=== PATIENT | male | born 1955 | race Caucasian/White ===

== ENCOUNTER 2025-01-26 21:32 | Inpatient (IN) | payer MEDICARE, OTHER, SELFPAY ==
[2025-01-26 14:33] VITALS: BP 134/89
[2025-01-26] MEDS: TYLENOL 1000 MG PO (14:42)
[2025-01-26 15:01] LABS: Hematocrit 43.7 % (39.0-52.0); Hemoglobin 14.7 g/dL (13.0-18.0); Mean Corp Hgb Conc. 33.6 g/dL (33.0-37.0); Mean Corpuscular Volume 85.7 fL (80.0-94.0); Nucleated Red Blood Cells % 0 % (-); Platelet Count 217 10^3/uL (130-400); Red Cell Dist. Width 14.7 % (11.5-14.5)
[2025-01-26 15:08] LABS: Urine Character Cloudy (Clear)
[2025-01-26 15:21] LABS: ALT (SGPT) 15 U/L (0-50); AST (SGOT) 22 U/L (17-59); Albumin 4.2 g/dl (3.5-5.0); Alkaline Phosphatase 69 U/L (38-126); Blood Urea Nitrogen 24 mg/dl (9-20); Calcium 9.4 mg/dl (8.4-10.2); Carbon Dioxide 23 mmol/L (22-30); Chloride 103 mmol/L (98-107); Glucose 119 mg/dl (70-99); Potassium 4.3 mmol/L (3.5-5.1); Sodium 136 mmol/L (135-145); Total Protein 7.4 g/dl (6.3-8.2); eGFR 40.24
[2025-01-26 15:22] LABS: Urine Squamous Cell 0-2 /LPF (Few)
[2025-01-26 15:23] LABS: Urine White Cell >100 /HPF (0-5)
[2025-01-26] MEDS: NSS 1000 IV (17:56)
[2025-01-26 17:57] VITALS: BMI 27.5
[2025-01-26 17:59] VITALS: BP 138/83
[2025-01-26] MEDS: ROCEPHIN 1000 MG IV ×2 (18:20→22:32)
--- NOTE | 2025-01-26 19:51 | ED.GENMED ---
History of Present Illness
General
Chief Complaint: Flank Pain
Source: patient
Exam Limitations: none
Time Seen by Provider: 01/26/25 17:30
Nursing documentation reviewed up to this point in time: agreed with
History of Present Illness
History of Present Illness:
Patient presents to ED secondary to 5-week history of intermittent chills sensation, along with left flank pain and urinary urgency. Patient reports fever over the past 1 week intermittently. Patient has had history of kidney stones. Denies
nausea or vomiting. Denies abdominal pain. Denies loss of appetite. Denies inability to urinate. Patient states that his left flank pain is minimal.
Past History
Past History
ED Past Medical History: None
ED Past Surgical History: None
Social History
Personal:
Living: with family
Employment: Employed
Review of Systems
Review of Systems
Allergies reviewed?: Yes
All Other Systems: ROS reviewed and negative except as documented in HPI and ROS
Constitutional: Reports fever and chills
Respiratory: Reports no symptoms
Cardiac: Reports no symptoms
ABD/GI: Reports no symptoms; Denies abdominal pain, nausea or vomiting
: Reports urgency
Musculoskeletal: Reports no symptoms
Skin: Reports no symptoms
Neurological: Reports no symptoms
Phy Exam
Physical Exam
Physical Exam:
Physical Exam
General: no apparent distress, not acutely ill. febrile
Head: nc/at. eomi
Neck: supple. normal range of motion.
Heart: s1/s2 regular rate and rhythm
Lungs: no acute respiratory distress. clear bilaterally
Abdomen: normal bowel sounds. not tender.
Neuro: alert and oriented x 3. no focal neurological deficits
Skin: no rash
Psychiatric: well kept. interactive and cooperative
Extremities: no edema. no calf tenderness.
Sepsis
Sepsis Screening
Sepsis Assessment: Sepsis
Sepsis Screen
Sepsis Screen: Sepsis
Date: 01/27/25
Time: 00:17
Course
Orders/Labs/Results
Orders:
Orders
01/26/25 Breakfast
NPO
Allow oral meds: Yes
Allow clear liquids: Sips of Clears
01/26/25 14:40
Acetaminophen [Tylenol] 1,000 mg .ROUTE .STK-MED ONE
01/26/25 14:42
Acetaminophen [Tylenol] 1,000 mg PO NOW STA
01/26/25 14:47
Complete Blood Count/With Diff Urgent
Comprehensive Metabolic Panel Urgent
Lactic Acid Urgent
Urinalysis Reflex To Culture Urgent
Date Specimen was Collected: 01/26/25
Time Specimen was Collected: 14:39
Urine Microscopic Reflex Cult Urgent
Urine Culture Urgent
LAWANDA Source: U
Specimen Description:
Date Specimen was Collected: 01/26/25
Time Specimen was Collected: 14:39
01/26/25 14:48
Blood Culture Urgent
LAWANDA Source: Blood/Venous
Specimen Description:
Date Specimen was Collected: 01/26/25
Time Specimen was Collected: 14:39
01/26/25 Dinner
Regular
At Your Request: Full Participation
01/26/25 17:39
CT Abd/pel Without Iv Or Oral Urgent
Comment:
Reason For Exam: left flank pain w hx kidney stone
0.9% Sodium Chloride 1000 ml [Nss] 1,000 ml IV BOLUS
CefTRIAXone [Rocephin] 1,000 mg IV NOW STA
01/26/25 18:14
Blood Culture Urgent
LAWANDA Source: Blood/Venous
Specimen Description:
01/26/25 20:09
Acetaminophen [Tylenol] 650 mg PO NOW STA
01/26/25 20:13
Fentanyl Citrate/Pf [Sublimaze] 25 mcg IV [id number] PRN
HYDROmorphone [Dilaudid] 0.25 mg IV PACU-[id number] PRN
HYDROmorphone [Dilaudid] 0.5 mg IV PACU-Q5MPRN PRN
Ondansetron Injectable [Zofran] 4 mg IV PACU-ONCEPRN PRN
Prochlorperazine [Compazine] 5 mg IV PACU-ONCEPRN PRN
Notify MD As Directed
Notify physician if: for SDS patients with known or suspected sleep obstructive sleep apnea, monitor in the
PACU.
Notify MD for any apneic/desaturation episodes
O2 Therapy [RESP] Urgent
Titrate/Wean O2 to maintain O2 sat greater than (%): 92
Special Instructions: -Provide supplemental oxygen to achieve O2 sat of 92% or greater.
-After 15 min, may wean O2 and discontinue if patient is able to maintain O2 sat of 92%
or greater during recovery period.
If patient is a discharge home, without oxygen therapy, notify anestheiologist if
unable to maintain O2 SAT of 92% or greater on room air for MD clearance.
01/26/25 20:14
Admit/Transfer Patient As Directed
Co-Sign Provider:
Level of Care: Inpatient admission
Assign to:: IMU- Intermediate Care
Physician / Group: Lucas
Diagnosis: UTI, Sepsis, L Ureteral Stone
Reason for Hospitalization: UTI, Sepsis, L Ureteral Stone
Expected length of stay greater than two midnights?: Yes
ELOS- Estimated Length of Stay in days: 3
I certify the patient meets the requirements for IP care: Yes
PRN Pain Medication Management As Directed
May give lesser potent ordered pain med per pt: Yes
preference::
Protocol:: Medication orders for pain may be administered in a
manner that supports deferring to patient preference
when the pt is:
- Requesting an ordered lesser potent pain medication.
Least to most potent pain medications are defined
as: acetaminophen < NSAID < tramadol < opioids
(morphine, oxycodone, hydromorphone).
- Requesting a lesser dose of the same medication IF
ORDERED.
- Requesting a less intrusive route of administration
if both routes are prescribed by the provider (PO <
IV).
01/26/25 20:15
Code Status As Directed
Resuscitation Status: Full Code
0.9% Sodium Chloride 500 ml [Nss] 500 ml IV BOLUS
Normosol (Mult Electrolytes) [Normosol-R/Plasmalyte-A] 1,000 ml IV PER PROTOCOL
01/26/25 20:19
Dexamethasone Sod Phosphate [Decadron] 20 mg .ROUTE .STK-MED ONE
Fentanyl Citrate/Pf [Sublimaze] 100 mcg .ROUTE .STK-MED ONE
Lidocaine 2% Mpf [Xylocaine Mpf 2%] 100 mg .ROUTE .STK-MED ONE
Midazolam HCl [Versed] 2 mg .ROUTE .STK-MED ONE
Ondansetron Injectable [Zofran] 4 mg .ROUTE .STK-MED ONE
Propofol [Diprivan] 20 ml .ROUTE .STK-MED
01/26/25 20:30
CefTRIAXone [Rocephin] 1,000 mg IV NOW STA
01/26/25 20:33
Sterile Water [Sterile Water For Injection] 10 ml IV NOW STA
01/26/25 20:50
Gentamicin Sulfate [Gentamicin] 150 mg 0.9% Sodium Chloride [Nss] 50 ml IV NOW
Phenazopyridine HCl [Pyridium] 200 mg PO TIDPRN PRN
01/26/25 21:05
CR Abdomen - 1 View Urgent
Reason For Exam: CYSTOSCOPY, LEFT STENT PLACEMENT
RF Fluoroscopy, C-arm Urgent
Reason For Exam: CYSTOSCOPY, LEFT STENT PLACEMENT
01/26/25 22:16
Acetaminophen [Tylenol] 650 mg PO Q4HPRN PRN
Atorvastatin [Lipitor] 80 mg PO HS
Gentamicin Sulfate [Gentamicin] 150 mg 0.9% Sodium Chloride [Nss] 50 ml IV NOW
HYDROmorphone [Dilaudid] 0.5 mg IV Q4HPRN PRN
Lactated Ringers [Lr] 1,000 ml IV 150 mls/hr
Ondansetron Injectable [Zofran] 4 mg IV Q6HPRN PRN
Tamsulosin [Flomax] 0.4 mg PO NOW STA
01/26/25 22:16
UROLOGY CONSULT Routine
Consulting Provider: Russell Gamez
Was physician already notified: Yes
Comment: UTI, Sepsis, L Ureteral Stone
Activity As Directed
Activity Level: Ambulate
With Assistance
Bladder Scan As Directed
Follow Bladder Retention/Intermittent Cath Algorithm?: Yes
PRN if no void in __ hours: 6
Frequency: Per Retention Algorithm
If Bladder Scan Result >: 400
then:: Straight cath
EKG with chest pain [ECG as needed] As Directed
ECG as needed for:: Chest Pain
I/O [Intake/ Output] As Directed
Frequency: Per unit guidelines
Pneumatic Compression Sleeves As Directed
Type: Knee high
Straight Cath As Directed
Frequency: Per Retention Algorithm
Additional Instructions: straight cath as needed per acute urinary retention algorithm for 24 hrs
Additional Instructions: for bladder scan greater than 400 mL
Vital Signs As Directed
Frequency: Per unit guidelines
Oxygen Therapy [O2 Therapy] [RESP] Routine
Titrate/Wean O2 to maintain O2 sat greater than (%): 94
DX Deep Vein Thrombosis Video Routine
01/27/25 06:00
Basic Metabolic Panel IN AM
Complete Blood Count/No Diff IN AM
Levothyroxine [Synthroid] 50 mcg PO DAILY @ 0600
01/27/25 08:00
Aspirin Chewable [Low Strength Aspirin] 81 mg PO DAILY
Metoprolol Xl [Toprol Xl] 25 mg PO DAILY
Tamsulosin [Flomax] 0.4 mg PO DAILY
01/27/25 18:00
CefTRIAXone [Rocephin] 1,000 mg IV Q24H
Abnormal Lab Results
01/26/25
14:47
WBC 18.3 H 10^3/uL
(4.8-10.8)
RDW 14.7 H %
(11.5-14.5)
Abs Immat Gran (auto) 0.1 H 10^3/uL
(0-0.05)
Absolute Neuts (auto) 16.5 H 10^3/uL
(1.4-6.5)
Absolute Lymphs (auto) 0.6 L 10^3/uL
(1.2-3.4)
Absolute Monos (auto) 1.0 H 10^3/uL
(0.1-0.6)
Neutrophils % 90.3 H %
(42.2-75.2)
Lymphocytes % 3.2 L %
(20.5-51.1)
BUN 24 H mg/dl
(9-20)
Creatinine 1.8 H mg/dL
(0.7-1.3)
Glucose 119 H mg/dl
(70-99)
Ur Occult Blood Reflex 4+ A
(Negative)
Urine Nitrite (Reflex) Positive A
(Negative)
Leukocyte Esterase Rfl 3+ A
(Negative)
Urine RBC 3-6 A /HPF
(0-2)
Urine WBC (Reflex) >100 A /HPF
(0-5)
Urine Bacteria (Reflex) Many A
(Negative)
Urine Albumin (Reflex) 3+ A
(Neg - Trace)
01/26/25 14:47
01/26/25 14:47
Vital Signs
Initial and Last Documented VS:
Initial Vital Signs
Temp Pulse Resp BP Pulse Ox
102.5 F H 108 20 134/89 95
01/26/25 14:33 01/26/25 14:33 01/26/25 14:33 01/26/25 14:33 01/26/25 14:33
Last Documented Vital Signs
Temp Pulse Resp BP Pulse Ox
98.5 F 81 19 97/56 95
01/26/25 22:54 01/27/25 00:00 01/27/25 00:00 01/27/25 00:00 01/27/25 00:00
MDM/Problems Addressed
MDM/Problems Addressed:
History, exam, and CT scan concerning for sepsis, likely secondary to UTI, due to obstructing renal stone.
Discussed with on-call urology, Dr. Gamez, who will take patient to the OR this evening.
Patient will be admitted for further evaluation and treatment.
Blood culture pending. Rocephin given.
*Pulse Oximetry
SaO2: 98
Oxygen Mode of Delivery: Room air
Patient hypoxic: no
*Critical Care Note
Total Time (30-74mins, 75-104mins- exclusive of procedures): Not Applicable
ED Attending Note
-
Portions of this chart may have been created with voice recognition software.� Occasional wrong word or��sound alike� substitutions may have occurred due to the inherent limitations of voice recognition software.
Discharge Plan
Departure
Patient Disposition: OR
Admit to: IMU
Presentation/result/management discussed w/ accepting MD/DO: Hospitalist
Discharge Problem:
Sepsis, Acute UTI, Kidney stone, Renal failure (ARF), acute on chronic
Interventions
Interventions:
*General Assessment Last Done: 01/26/25 17:58
*Neglect/Abuse Screening Last Done: 01/26/25 18:37
*ED COVID-19 Vaccine History Last Done: 01/26/25 17:58
*ED Influenza Vaccine History Last Done: 01/26/25 17:58
[facility] Risk Assessment Tool Last Done: 01/26/25 18:37
*Risk Screen - Suicide (C-SSRS) Last Done: 01/26/25 18:37
*Nursing Disposition Last Done: 01/26/25 20:26
TL-Pslwls-Izuohoyqse Assessment Last Done: 01/26/25 18:00
ED-Male Genitourinary Assessment Last Done: 01/26/25 18:00
Discharge Date and Time
Discharge Date/Time: 01/26/25 20:26
[2025-01-26] MEDS: TYLENOL 650 MG PO (20:19)
--- NOTE | 2025-01-26 20:25 | HPS.HSE ---
Family Physician
-
Family Physician: Allen Hurtado Files
Chief Complaint
-
Chills
History of Present Illness
Patient is a 69y M with PMH significant for ASCVD and hypothyroidism who presents to ED complaining of shaking chills. Patient states he initially developed chills in mid December while away in the [facility]. He noted decreased urinary stream,
dark colored urine and mild L flank pain. [place] returned to [place] and his chills, etc seemed to resolve. He continued to have issues with urination however - namely, frequency with small volume / dark colored urination. He noted pain radiating to the
tip of the penis with urination. He spoke with his Urologist and had an appointment for the end of this week. However, he developed recurrent chills 2-3 days ago. He notes some pain in the L flank / L hip area.
He presented to the ED this evening for further evaluation.
Medical History
Past Medical History
Past Medical History: Reports Other
Additional Past Medical History:
ASCVD
Hypothyroidism
Nephrolithiasis
CKD III
Past Surgical History: Reports Other
Additional Past Surgical History:
CABG x 3
Cysto / Stents
Social History
Tobacco: Non-smoker
Alcohol: None
Drug: None
Family History
Family History: Not pertinent
Allergies / Home Medications
Allergies reflects when Allergies were last updated in [employer].
Home Medications with original date entered in [employer]
Allergy/Medication List:
Allergies
Allergy/AdvReac Type Severity Reaction Status Date / Time
No Known Allergies Allergy Verified 01/26/25 14:32
Home Medications
aspirin 81 mg chewable tablet 81 mg PO DAILY 01/26/25
atorvastatin 80 mg tablet 80 mg PO HS 01/26/25
ezetimibe 10 mg tablet 10 mg PO DAILY 01/26/25
levothyroxine 50 mcg tablet 50 mcg PO DAILY 01/26/25
metoprolol succinate 25 mg tablet,extended release 24 hr 25 mg PO DAILY 01/26/25
Review of Systems
-
History Source: Patient
A 12 point ROS was completed and negative except as noted: Yes
Constitutional: Reports Fever, Fatigue and Chills
EENT: Denies Sore Throat
Respiratory: Denies Cough or Trouble Breathing
Cardiac: Denies Chest Pain or Palpitations
Abdomen/GI: Reports Abdominal Pain; Denies Nausea, Vomiting or Diarrhea
: Reports Dysuria, Frequency, Flank Pain, Difficulty Voiding and Dark Urine
Musculoskeletal: Denies Joint Pain or Edema
Neurological: Denies Dizzy or Headache
Psych: Denies Depression or Anxiety
Physical Exam
Vital Signs
Vital Signs
Temp Pulse Resp BP Pulse Ox
101.3 F H 62 20 138/83 98
01/26/25 20:07 01/26/25 17:59 01/26/25 17:59 01/26/25 17:59 01/26/25 19:54
Physical Exam
General: Other (69y M with active rigors. Awake and alert and able to answer questions / follow commands.)
HEENT: Moist mucous membranes and PERRLA
Respiratory: Clear; No Wheezes, Rales or Rhonchi
Cardiac: S1/S2 and Tachycardia; No Murmur
GI: Soft, Non Distended, Normal Bowel Sounds and Other (Mild LLQ tenderness.)
Musculoskeletal: No Clubbing, No Cyanosis and No Edema
Neuro: AO x 3
Laboratory Results
-
01/26/25 14:47
01/26/25 14:47
Laboratory Results
Lactic Acid 1.3 mmol/L (0.7-2.0) 01/26/25 14:47
Total Bilirubin 1.1 mg/dl (0.2-1.3) 01/26/25 14:47
AST 22 U/L (17-59) 01/26/25 14:47
ALT 15 U/L (0-50) 01/26/25 14:47
Alkaline Phosphatase 69 U/L (38-126) 01/26/25 14:47
Impression/Plan
-
A/P: Patient is a 69y M with PMH significant for ASCVD and hypothyroidism who presents to ED complaining of shaking chills, urinary symptoms and L flank pain.
Left Ureterolithiasis with Hydronephrosis
UTI secondary to the above
Sepsis secondary to the above
HUGH on CKD III
- Admit for further evaluation and treatment.
- Patient to be taken urgently to the OR for cysto / stent.
- Admit to IMU post-op.
- Continue IV abx pending culture data.
- Supportive care including aggressive IVFs, pain control, antipyretics, etc +/- pressor support if needed to maintain perfusion.
- Tamsulosin daily.
- Appreciate Urology evaluation / intervention.
- SCr = 1.8 compared to prior baseline of 1.5. Likely secondary to obstruction, sepsis, etc.
- Follow for improvement s/p cysto, IVFs, etc.
ASCVD
- Stable. No chest pain, palpitations, etc.
- Monitor on telemetry post-op.
- Continue ASA, beta-amelia, statin.
- Follow for any new symptoms / complaints.
Hypothyroidism
- Continue current T4 replacement.
DVT Prophylaxis: SCDs
Code Status: Full
--- NOTE | 2025-01-26 20:45 | CONS.URO ---
Consultation
-
Date/Time Consultation Requested: 01/26/20252004
Date/Time Consultation Performed: 01/26/20252029
Requesting Provider: ED/No
Performing Provider: Franco
Reason for Consultation: left ureteral stone + sepsis
Medical History
History of Present Illness
ED note: Patient presents to ED secondary to 5-week history of intermittent chills sensation, along with left flank pain and urinary urgency. Patient reports fever over the past 1 week intermittently. Patient has had history of kidney stones.
Denies nausea or vomiting. Denies abdominal pain. Denies loss of appetite. Denies inability to urinate. Patient states that his left flank pain is minimal.'
Past Medical History
Past Medical History: CAD, HTN, Hypercholesterolemia and Hypothyroidism
Past Surgical History: Cardiac and Urological (2011 Left Ureteroscopy)
Allergies/Home Medications
Allergies
Allergy/AdvReac Type Severity Reaction Status Date / Time
No Known Allergies Allergy Verified 01/26/25 14:32
Home Medications
�Medication �Instructions �Recorded �Confirmed �Type
aspirin 81 mg chewable tablet 81 mg PO DAILY 01/26/25 01/26/25 History
atorvastatin 80 mg tablet 80 mg PO HS 01/26/25 01/26/25 History
ezetimibe 10 mg tablet 10 mg PO DAILY 01/26/25 01/26/25 History
levothyroxine 50 mcg tablet 50 mcg PO DAILY 01/26/25 01/26/25 History
metoprolol succinate 25 mg 25 mg PO DAILY 01/26/25 01/26/25 History
tablet,extended release 24 hr
Physical Exam
Vital Signs
Vital Signs
Temp Pulse Resp BP Pulse Ox
101.3 F H 62 20 138/83 98
01/26/25 20:07 01/26/25 17:59 01/26/25 17:59 01/26/25 17:59 01/26/25 19:54
Lab / Testing Results
Laboratory Results
01/26/25 14:47
01/26/25 14:47
Physical Exam
General: No Apparent Distress
HEENT: Normocephalic
GI: Soft and Non Tender
Genito-urinary: No Costovertebral Tend
Skin: Warm
Neuro: Awake and Alert
Assessment / Plan
-
Left Ureteral Stone: 4 mm, lower, obstructing
UTI with evolving sepsis
emergently to OR for left ureteral stenting
Data Reviewed
-
CT Scan: Image personally visualized and interpreted
Lab Data: Labs Reviewed
Old Records: Reviewed
--- NOTE | 2025-01-26 20:49 | W.SUR.PREOP ---
Pre-Operative Surgical Note
-
I have examined this patient prior to the performance of the scheduled procedure.
Surgical consent signed.
--- NOTE | 2025-01-26 21:14 | W.IMMPOSTOP ---
Surgical Immed Post Op Note
-
Primary Surgeon: Franco
Pre-op Diagnosis: Left ureteral Stone, evolving Sepsis
Post-op Diagnosis: same
Procedure Performed: Cysto, dislodgement of left ureteral stone, stenting
Anesthesia Type: LMA
Specimen / Cultures: none
Estimated Blood Loss: none
Complications: none
Operative Findings: debris-laden urine in bladder; purulent urine via left ureter upon placement of stent [6 fr 24 cm]
[2025-01-26 21:24] VITALS: BP 138/83; BP 72/52
[2025-01-26 21:45] VITALS: BP 101/58
[2025-01-26 22:00] VITALS: BP 97/58
[2025-01-26 22:22] VITALS: BP 125/72
[2025-01-26 22:28] VITALS: BMI 28.2
[2025-01-26] MEDS: FLOMAX 0.4 MG PO (22:32)
[2025-01-26] MEDS: LIPITOR 80 MG PO (22:32)
[2025-01-26] MEDS: STERILE WATER FOR INJECTION 10 ML IV (22:32)
[2025-01-26] MEDS: LR 1000 IV (22:44)
--- NOTE | 2025-01-26 23:07 | PTCARENOTE ---
rec'd pt from PACU. IMU overflow. CHG bath done. oriented x3, SR on monitor, denies pain. afebrile. on RA, O2 sat 96%. CC placed #30. IVF initiated. call tolliver in reach. updated at bedside. care ongoing.
[2025-01-27] VITALS (15 sets, daily range): BP systolic 91–120; BP diastolic 56–71
[2025-01-27] MEDS: LR 1000 IV ×3 (03:52→18:22)
[2025-01-27 04:40] LABS: Blood Urea Nitrogen 25 mg/dl (9-20); Calcium 8.7 mg/dl (8.4-10.2); Carbon Dioxide 24 mmol/L (22-30); Chloride 107 mmol/L (98-107); Estimated Creatinine Clearance 42 ml/min; Glucose 129 mg/dl (70-99); Potassium 4.7 mmol/L (3.5-5.1); Sodium 136 mmol/L (135-145); eGFR 50.08
[2025-01-27 04:42] LABS: Hematocrit 39.5 % (39.0-52.0); Hemoglobin 13.4 g/dL (13.0-18.0); Mean Corp Hgb Conc. 33.9 g/dL (33.0-37.0); Mean Corpuscular Volume 84.4 fL (80.0-94.0); Platelet Count 169 10^3/uL (130-400); Red Cell Dist. Width 14.8 % (11.5-14.5)
[2025-01-27] MEDS: SYNTHROID 50 MCG PO (06:21)
--- NOTE | 2025-01-27 07:39 | W.PN.URO.CBU ---
Today's Communication / Plan
-
tx infection-- Ceftriaxone + Gent until micro results permit tailoring
After infection has been cleared and patient has fully recovered, a return to OR to remove stone will be scheduled.
Assessment / Plan
-
Left ureteral Stone, evolving Urosepsis
s/p emergency Cysto, dislodgement of left ureteral stone, stenting
Diagnosis
-
Date of Service: January 27, 2025
-
Patient Diagnosis:
Pre-op Diagnosis: Left ureteral Stone, evolving Sepsis
s/p: Cysto, dislodgement of left ureteral stone, stenting
Post Op Day: 1
Objective
-
Vital Signs
Temp Pulse Resp BP Pulse Ox
97.7 F 61 15 91/65 93
01/27/25 07:30 01/27/25 06:00 01/27/25 06:00 01/27/25 06:00 01/27/25 06:00
Intake and Output
01/26/25 01/27/25 01/28/25
06:59 06:59 06:59
Intake Total 1380 / 1380
Output Total 400 / 400
Balance 980 / 980
Intake:
Oral fluids 480 / 480
IV fluids (Total) 900 / 900
Lr 1,000 ml @ 150 mls/hr IV . 900 / 900
Q6H40M [facility] Rx#:[id number]
Output:
Urine, Voided 400 / 400
Laboratory Results
01/27/25 03:52
01/27/25 03:52
+ blood cx
Physical Exam
-
General - well developed, well nourished, no acute distress
Chest - clear bilaterally
Abdomen - soft, non-tender, positive bowel sounds, no CVAT, no incisional pain or distention
Genitalia - normal
Rectal - normal
Skin - warm & dry with no rash
Neuro - AOx3, no motor deficits
Extremities - no clubbing, no cyanosis, no edema
Incision - clean, dry
Dressing - clean, dry, intact
[2025-01-27] MEDS: LOW STRENGTH ASPIRIN 81 MG PO (08:46)
[2025-01-27] MEDS: FLOMAX 0.4 MG PO (08:46)
[2025-01-27] MEDS: TOPROL XL PO (08:47)
--- NOTE | 2025-01-27 09:36 | CON.ID ---
Consultation
-
Date/Time Consultation Requested: 01/27/25 9:10
Date/Time Consultation Performed: 01/27/25 9:36
Requesting Provider: Dr Cortes
Performing Provider: Dr Hewitt
Reason for Consultation: UTI
Chief Complaint / Past History
Chief Complaint
rigors
History of Present Illness
Mr Hopson is a 69 year old male with pmedhx of renal stones (calcium oxalate and uric acid 2010) ASCVD who presented here yesterday for rigors. He reports chills first began in mid-december about 4 weeks ago while [facility]. He also
had mild L flank pain, decreased urinary stream and dark urine. The chills resolved but he continued with urinary frequency and terminal dysuria. Then 2-3 days ago the chills relapsed along with pain in the L flank and he presented here
Since arrival here he has been febrile to 102.5, bp intermittently mildly hypotensive, wbc initially 18.3, hgb 14.7, plt 217, L shift present, na 136, cr 1.8 baseline appears to be 1.5 and today has returned to baseline, lactic acid1.3, lfts wnl, UA
>100 WBC/hpf, 01/26 CT a/p without contrast: 4 mm obstructing stone distal L ureter with L sided hydroureteronephrosis, asymmetric stranding along l ureter and kidney, urine culture is pending, blood culture with E coli, patient on ceftriaxone,
01/26 taken for cysto, dislodgement of L ureteral stone (not able to be removed), stenting, had purulent urine on stent placement, was given gentamicin 150 mg of gentamicin, ID is consulted for assistance with management.
Past History
Additional Past Medical History:
ASCVD
Hypothyroidism
Nephrolithiasis
CKD III
Additional Past Surgical History:
CABG x 3
Cysto / Stents
Allergy History:
No Known Allergies Allergy (Verified 01/26/25 14:32)
Medications Reviewed: Yes
Social History
Tobacco: Non-Smoker
Alcohol: None
Drug: None
Family History
Family History: Not Pertinent
Review of Systems
Review of Systems
Constitutional: Reports Fever, Fatigue and Chills
EENT: Denies Sore Throat
Respiratory: Denies Cough or Trouble Breathing
Cardiac: Denies Chest Pain or Palpitations
Abdomen/GI: Reports Abdominal Pain; Denies Nausea, Vomiting or Diarrhea
: Reports Dysuria, Frequency, Flank Pain, Difficulty Voiding and Dark Urine
Musculoskeletal: Denies Joint Pain or Edema
Neurological: Denies Dizzy or Headache
Psych: Denies Depression or Anxiety
Vital Signs
Temp Pulse Resp BP Pulse Ox
97.7 F 61 15 91/65 93
01/27/25 07:30 01/27/25 06:00 01/27/25 06:00 01/27/25 06:00 01/27/25 06:00
Physical Exam
Physical Exam
Constitutional: No Acute Distress
Cardiovascular: Regular Rate and S1/S2; Negative Murmur or Rub
Pulmonary: Clear and Symmetric; Negative Wheezes, Rales or Rhonchi
Gastrointestinal: Soft, Non Tender, Non Distended and Normal Bowel Sounds
Genito-Urinary: Negative Suprapubic Tenderness or CVA Tenderness
Skin: Warm and Dry; Negative Rash or Jaundice
Lab / Diagnostic Study Results
01/27/25 03:52
01/27/25 03:52
Abs Immat Gran (auto) 0.1 10^3/uL (0-0.05) H 01/26/25 14:47
Absolute Neuts (auto) 16.5 10^3/uL (1.4-6.5) H 01/26/25 14:47
Absolute Lymphs (auto) 0.6 10^3/uL (1.2-3.4) L 01/26/25 14:47
Absolute Monos (auto) 1.0 10^3/uL (0.1-0.6) H 01/26/25 14:47
Absolute Basos (auto) 0.1 10^3/uL (0-0.2) 01/26/25 14:47
Immature Gran % 0.4 % (0-0.5) 01/26/25 14:47
Neutrophils % 90.3 % (42.2-75.2) H 01/26/25 14:47
Lymphocytes % 3.2 % (20.5-51.1) L 01/26/25 14:47
Monocytes % 5.7 % (1.7-9.3) 01/26/25 14:47
Eosinophils % 0.1 % (0-6) 01/26/25 14:47
Basophils % 0.3 % (0-2) 01/26/25 14:47
Lactic Acid 1.3 mmol/L (0.7-2.0) 01/26/25 14:47
Ur Squamous Epith Cells 0-2 /LPF (Few) 01/26/25 14:47
Microbiology Results
Micro:
01/26/25 14:48 Blood Culture - Preliminary
Blood/Venous Escherichia coli
Gram Stain - Preliminary
01/26/25 18:14 Blood Culture - Preliminary
Blood/Venous Positive culture in progress
Gram Stain - Preliminary
01/26/25 14:47 Urine Culture - Pending
Urine
Assessment / Plan
Pyelonephritis due to E coli
Bacteremia due to E coli
Suspected prostatitis
Possible CKD
- urine culture obtained prior to removal of obstruction and may be falsely negative
- blood cultures with E coli with likely urinary source
- no need to repeat blood cultures for gram negative bacteremia with a source from ID perspective
- as patient is HD stable the risks of aminoglycosides (nephro/ototoxicity in the setting of likely CKD) outweigh the benefits (more rapid clearance of bacteremia) at this time in my opinion
- continue ceftriaxone for present
- check EKG to get baseline QTc
[2025-01-27] MEDS: FLUSH (NSS) 1 FLUSH IV ×2 (09:44→09:50)
[2025-01-27] MEDS: STERILE WATER FOR INJECTION 20 ML IV (09:44)
[2025-01-27] MEDS: ROCEPHIN 2000 MG IV (09:45)
--- NOTE | 2025-01-27 10:23 | PTCARENOTE ---
report received, assessments per work list. patient oriented, denies pain. monitor nsr, good appetite for breakfast. abdomen soft, condom cath removed. using urinal. oob to chair. ID at bedside. blood cultures sent. call tolliver in reach
[2025-01-27] MEDS: CLARITIN 10 MG PO (12:48)
--- NOTE | 2025-01-27 14:07 | W.PN.HOSP.TC ---
Today's Communication/Plan
-
Monitor vital signs see plan
Continue with fluids
Monitor renal function
Check new sets of blood culture
Follow blood culture for admission, growing gram-negative rods
Continue with ceftriaxone
Neurology following
ID evaluation
Transfer out of IMU
Assessment / Plan
Assessment / Plan
General: Other (69y M with active rigors. Awake and alert and able to answer questions / follow commands.)
HEENT: Moist mucous membranes and PERRLA
Respiratory: Clear; No Wheezes, Rales or Rhonchi
Cardiac: S1/S2 and Tachycardia; No Murmur
GI: Soft, Non Distended, Normal Bowel Sounds
Musculoskeletal: No Clubbing, No Cyanosis and No Edema
Neuro: AO x 3
Left Ureterolithiasis with Hydronephrosis
UTI secondary to the above
Sepsis secondary to UTI with bacteremia
HUGH on CKD III
- Patient was taken urgently to the OR for cysto / stent. s/p cysto/stent
- Continue IV abx pending culture data. Blood culture 2 out of 2 bottles positive for gram-negative bacilli. ID evaluation. Check new sets of blood culture
Continue with IVF
- Tamsulosin daily.
Urology following
- SCr = 1.8 compared to prior baseline of 1.5. Likely secondary to obstruction, sepsis, etc.
ASCVD
- Stable. No chest pain, palpitations, etc.
- Monitor on telemetry post-op.
- Continue ASA, beta-amelia, statin.
- Follow for any new symptoms / complaints.
hx of HTN
monitor
Hypothyroidism
- Continue current T4 replacement.
DVT Prophylaxis: SCDs, heparin
Code Status: Full
I spent a total of 53 minutes with the patient or on the floor. More than 50% of this time involved counseling and coordination of care.
Anticipated Discharge: > 48 hours
Subjective/Interval History
-
Date of Service: January 27, 2025
Denies nausea
Objective Data
-
Labs:
Laboratory Results
01/27/25
03:52
WBC 17.3 H
Hgb 13.4
Hct 39.5
Plt Count 169 D
Sodium 136
Potassium 4.7
Chloride 107
Carbon Dioxide 24
BUN 25 H
Creatinine 1.5 H
Glucose 129 H
Calcium 8.7
Vital Signs:
Vital Signs
Temp Pulse Resp BP Pulse Ox
98.7 F 79 19 106/62 93
01/27/25 11:12 01/27/25 11:00 01/27/25 11:00 01/27/25 10:00 01/27/25 11:00
I&O
01/26/25 01/27/25 01/28/25
06:59 06:59 06:59
Intake Total 1380 / 1380 1350 / 1350
Output Total 400 / 400 450 / 450
Balance 980 / 980 900 / 900
--- NOTE | 2025-01-27 14:42 | CM ---
Initial assessment completed. Patient is a 69y M with PMH significant for ASCVD and hypothyroidism who presents to ED complaining of shaking chills.
Patient resides w/ spouse in a 2STH, 1 step to enter. Per spouse, she and patient reside on the 1st floor most of the time as there is a bedroom and bathroom there. Patient is independent w/ ambulation, no device required. Independent w/ ADLs and
personal care. No DME, no SNF hx, no HC hx.
Address, point of contact and insurance verified
PCP: Bryant Boone
Pharmacy: [facility]
Plan: Home, watch for needs
[2025-01-27] MEDS: HEPARIN 5000 UNITS SC (20:19)
[2025-01-27] MEDS: LIPITOR 80 MG PO (20:19)
[2025-01-28] MEDS: LR 1000 IV ×3 (01:16→14:27)
[2025-01-28 03:00] VITALS: BP 99/63
[2025-01-28] MEDS: SYNTHROID 50 MCG PO (05:06)
[2025-01-28 05:54] LABS: Hematocrit 34.7 % (39.0-52.0); Hemoglobin 11.9 g/dL (13.0-18.0); Mean Corp Hgb Conc. 34.3 g/dL (33.0-37.0); Mean Corpuscular Volume 84.8 fL (80.0-94.0); Nucleated Red Blood Cells % 0 % (-); Platelet Count 189 10^3/uL (130-400); Red Cell Dist. Width 14.7 % (11.5-14.5)
[2025-01-28 06:20] LABS: Blood Urea Nitrogen 27 mg/dl (9-20); Calcium 8.5 mg/dl (8.4-10.2); Carbon Dioxide 23 mmol/L (22-30); Chloride 107 mmol/L (98-107); Estimated Creatinine Clearance 52 ml/min; Glucose 107 mg/dl (70-99); Potassium 4.3 mmol/L (3.5-5.1); Sodium 135 mmol/L (135-145); eGFR > 60.00
[2025-01-28 07:29] VITALS: BP 125/78
[2025-01-28] MEDS: CLARITIN 10 MG PO (07:44)
[2025-01-28] MEDS: TOPROL XL 25 MG PO (07:44)
[2025-01-28] MEDS: LOW STRENGTH ASPIRIN 81 MG PO (07:44)
[2025-01-28] MEDS: FLOMAX 0.4 MG PO (07:44)
[2025-01-28] MEDS: HEPARIN 5000 UNITS SC ×2 (07:49→20:47)
[2025-01-28] MEDS: FLUSH (NSS) IV (08:11)
--- NOTE | 2025-01-28 08:40 | W.PN.URO.CBU ---
Today's Communication / Plan
-
abx per medical team
will return to OR for removal of stone after infection has cleared
Assessment / Plan
-
Left ureteral Stone, E. coli Sepsis
s/p: Cysto, dislodgement of left ureteral stone, stenting
Diagnosis
-
Date of Service: January 28, 2025
-
Diagnoses: Left ureteral Stone, E. coli Sepsis
s/p: Cysto, dislodgement of left ureteral stone, stenting
Post Op Day: 2
Objective
-
Vital Signs
Temp Pulse Resp BP Pulse Ox
97.9 F 61 17 125/78 97
01/28/25 07:29 01/28/25 07:29 01/28/25 07:29 01/28/25 07:29 01/28/25 07:29
Intake and Output
01/27/25 01/28/25 01/29/25
06:59 06:59 06:59
Intake Total 1380 / 1380 4870 / 4870
Output Total 400 / 400 1150 / 1150
Balance 980 / 980 3720 / 3720
Intake:
Oral fluids 480 / 480 2770 / 2770
IV fluids (Total) 900 / 900 2099 / 2100
Lr 1,000 ml @ 150 mls/hr IV . 900 / 900 2099
[id number] [facility] Rx#:[id number]
Output:
Urine, Voided 400 / 400 1150 / 1150
Laboratory Results
01/28/25 05:07
01/28/25 05:07
E. coli in urine and blood
Physical Exam
-
General - well developed, well nourished, no acute distress
Chest - clear bilaterally
Abdomen - soft, non-tender, positive bowel sounds, no CVAT, no incisional pain or distention
Genitalia - normal
Rectal - normal
Skin - warm & dry with no rash
Neuro - AOx3, no motor deficits
Extremities - no clubbing, no cyanosis, no edema
Incision - clean, dry
Dressing - clean, dry, intact
[2025-01-28] MEDS: STERILE WATER FOR INJECTION 20 ML IV (10:10)
[2025-01-28] MEDS: ROCEPHIN 2000 MG IV (10:10)
[2025-01-28] MEDS: FLUSH (NSS) 1 FLUSH IV (10:11)
[2025-01-28 11:06] VITALS: BP 106/58
--- NOTE | 2025-01-28 11:56 | W.PN.HOSP.TC ---
Today's Communication/Plan
-
Monitor vital signs see plan
Monitor leukocytosis
Follow cultures
Continue with antibiotic
Assessment / Plan
Assessment / Plan
General: No acute distress
HEENT: Moist mucous membranes and PERRLA
Respiratory: Clear; No Wheezes, Rales or Rhonchi
Cardiac: S1/S2 and Tachycardia; No Murmur
GI: Soft, Non Distended, Normal Bowel Sounds
Musculoskeletal: No Clubbing, No Cyanosis and No Edema
Neuro: AO x 3
Left Ureterolithiasis with Hydronephrosis
UTI secondary to the above
Sepsis secondary to UTI with bacteremia
HUGH on CKD III
- Patient was taken urgently to the OR for cysto / stent. s/p cysto/stent
- Continue IV abx pending culture data. Blood culture 2 out of 2 bottles positive for E. coli. ID following. bcx 01/27 pending. cw CFTX
- Tamsulosin daily.
Urology following
Renal insufficiency
Improving
Likely secondary to obstruction
ASCVD
- Stable. No chest pain, palpitations, etc.
- Monitor on telemetry post-op.
- Continue ASA, beta-amelia, statin.
- Follow for any new symptoms / complaints.
hx of HTN
monitor
Hypothyroidism
- Continue current T4 replacement.
DVT Prophylaxis: SCDs, heparin
Code Status: Full
I spent a total of 51 minutes with the patient or on the floor. More than 50% of this time involved counseling and coordination of care.
Anticipated Discharge: 24 - 48 hours
Subjective/Interval History
-
Date of Service: January 28, 2025
Denies pain
Objective Data
-
Labs:
Laboratory Results
01/28/25
05:07
WBC 19.2 H
Hgb 11.9 L
Hct 34.7 L
Plt Count 189
Sodium 135
Potassium 4.3
Chloride 107
Carbon Dioxide 23
BUN 27 H
Creatinine 1.2
Glucose 107 H
Calcium 8.5
Vital Signs:
Vital Signs
Temp Pulse Resp BP Pulse Ox
97.9 F 91 17 106/58 95
01/28/25 11:06 01/28/25 11:06 01/28/25 11:06 01/28/25 11:06 01/28/25 11:06
I&O
01/27/25 01/28/25 01/29/25
06:59 06:59 06:59
Intake Total 1380 / 1380 4870 / 4870
Output Total 400 / 400 1150 / 1150
Balance 980 / 980 3720 / 3720
[2025-01-28 15:11] VITALS: BP 135/73
--- NOTE | 2025-01-28 16:35 | W.PN.ID1 ---
Date of Service
Date of Service: January 28, 2025
Today's Communication
- start ciprofloxacin 500 mg PO BID x 14 day course 01/27-02/09
- QTc 420
- stable for dc from ID perspective, follow up with urology
Assessment / Plan
Pyelonephritis due to E coli
Bacteremia due to E coli
Suspected prostatitis
Possible CKD
- urine culture E coli
- blood cultures with E coli
- start ciprofloxacin 500 mg PO BID x 14 day course 01/27-02/09
- QTc 420
- stable for dc from ID perspective, follow up with urology
Chief Complaint
-: UTI
Subjective / Review of Systems
afebrile
bp stable
less dysuria
asking about dc
Vital Signs / Physical Exam
Vital Signs
Vital Signs
Temp Pulse Resp BP Pulse Ox
98.3 F 79 17 135/73 97
01/28/25 15:11 01/28/25 15:11 01/28/25 15:11 01/28/25 15:11 01/28/25 15:11
Physical Exam
Constitutional: No Acute Distress
Cardiovascular: Regular Rate and S1/S2; Negative Murmur or Rub
Pulmonary: Clear and Symmetric; Negative Wheezes or Rales
Gastrointestinal: Soft, Non Tender, Non Distended and Normal Bowel Sounds
Genito-Urinary: Negative Suprapubic Tenderness or CVA Tenderness
Skin: Warm and Dry; Negative Rash or Jaundice
Objective Data
Lab Data
Lab Results
01/28/25 05:07
01/28/25 05:07
Estimated Creat Clear 52 ml/min 01/28/25 05:07
Lactic Acid 1.3 mmol/L (0.7-2.0) 01/26/25 14:47
Total Bilirubin 1.1 mg/dl (0.2-1.3) 01/26/25 14:47
AST 22 U/L (17-59) 01/26/25 14:47
ALT 15 U/L (0-50) 01/26/25 14:47
Alkaline Phosphatase 69 U/L (38-126) 01/26/25 14:47
Most recent labs reviewed.
Micro Results:
01/27/25 10:07 Blood Culture - Preliminary
Blood/Venous No Growth in 24 hours- Final report to follow
01/27/25 09:40 Blood Culture - Preliminary
Blood/Venous No Growth in 24 hours- Final report to follow
01/26/25 18:14 Blood Culture - Preliminary
Blood/Venous Escherichia coli
Gram Stain - Preliminary
01/26/25 14:48 Blood Culture - Preliminary
Blood/Venous Escherichia coli
Gram Stain - Preliminary
01/26/25 14:47 Urine Culture - Final
Urine Escherichia coli
Urine Culture Final 01/28/25-0808
CC: Greater than 100,000 CFU/ML Escherichia coli
Organism 1 Escherichia coli
1. Escherichia coli
M.I.C. RX
--------- ---
Amoxicillin/Potas. Clavulanate <=8/4 S
Ampicillin <=8 S
Ampicillin/Sulbactam <=4/2 S
Aztreonam <=4 S
Cefazolin <=2 S
Ertapenem <=0.5 S
Ciprofloxacin <=0.25 S
Gentamicin <=2 S
Meropenem <=1 S
Nitrofurantoin-Urine Only <=32 S
Piperacillin/Tazobactam <=8 S
Tetracycline <=4 S
Tobramycin <=2 S
Trimethoprim/Sulfamethoxazole <=2/38 S
[2025-01-28 19:43] VITALS: BP 141/77
[2025-01-28] MEDS: LR IV (22:24)
[2025-01-28 22:55] VITALS: BP 122/74
[2025-01-29 02:55] VITALS: BP 121/71
[2025-01-29] MEDS: SYNTHROID 50 MCG PO (05:00)
[2025-01-29 05:59] LABS: Hematocrit 35.0 % (39.0-52.0); Hemoglobin 12.0 g/dL (13.0-18.0); Mean Corp Hgb Conc. 34.3 g/dL (33.0-37.0); Mean Corpuscular Volume 83.9 fL (80.0-94.0); Nucleated Red Blood Cells % 0 % (-); Platelet Count 189 10^3/uL (130-400); Red Cell Dist. Width 14.7 % (11.5-14.5)
[2025-01-29 06:05] LABS: Blood Urea Nitrogen 22 mg/dl (9-20); Calcium 8.5 mg/dl (8.4-10.2); Carbon Dioxide 25 mmol/L (22-30); Chloride 104 mmol/L (98-107); Estimated Creatinine Clearance 48 ml/min; Glucose 83 mg/dl (70-99); Potassium 4.0 mmol/L (3.5-5.1); Sodium 135 mmol/L (135-145); eGFR 59.47
[2025-01-29 07:33] VITALS: BP 108/64
[2025-01-29] MEDS: TOPROL XL 25 MG PO (08:14)
[2025-01-29] MEDS: FLOMAX 0.4 MG PO (08:14)
[2025-01-29] MEDS: CLARITIN 10 MG PO (08:14)
[2025-01-29] MEDS: CIPRO 500 MG PO (08:14)
[2025-01-29] MEDS: LOW STRENGTH ASPIRIN 81 MG PO (08:14)
[2025-01-29] MEDS: HEPARIN 5000 UNITS SC (08:14)
[2025-01-29] MEDS: FLUSH (NSS) IV ×2 (08:15→08:18)
--- NOTE | 2025-01-29 10:39 | W.PN.ID1 ---
Date of Service
Date of Service: January 29, 2025
Today's Communication
- c/w ciprofloxacin 500 mg PO BID x 14 day course 01/27-02/09
- QTc 420
- stable for dc from ID perspective, follow up with urology
Assessment / Plan
Pyelonephritis due to E coli
Bacteremia due to E coli
Suspected prostatitis
Possible CKD
- urine culture E coli
- blood cultures with E coli
- c/w ciprofloxacin 500 mg PO BID x 14 day course 01/27-02/09
- QTc 420
- stable for dc from ID perspective, follow up with urology
Chief Complaint
-: UTI
Subjective / Review of Systems
afebrile
bp stable
tolerating current therapies
no events overnight
Vital Signs / Physical Exam
Vital Signs
Vital Signs
Temp Pulse Resp BP Pulse Ox
99.6 F 69 17 108/64 96
01/29/25 07:33 01/29/25 07:33 01/29/25 07:33 01/29/25 07:33 01/29/25 08:15
Physical Exam
Constitutional: No Acute Distress
Cardiovascular: Regular Rate and S1/S2; Negative Murmur or Rub
Pulmonary: Clear and Symmetric; Negative Wheezes or Rales
Gastrointestinal: Soft, Non Tender, Non Distended and Normal Bowel Sounds
Skin: Warm and Dry; Negative Rash or Jaundice
Objective Data
Lab Data
Lab Results
01/29/25 05:15
01/29/25 05:15
Estimated Creat Clear 48 ml/min 01/29/25 05:15
Lactic Acid 1.3 mmol/L (0.7-2.0) 01/26/25 14:47
Total Bilirubin 1.1 mg/dl (0.2-1.3) 01/26/25 14:47
AST 22 U/L (17-59) 01/26/25 14:47
ALT 15 U/L (0-50) 01/26/25 14:47
Alkaline Phosphatase 69 U/L (38-126) 01/26/25 14:47
Most recent labs reviewed.
Micro Results:
01/27/25 10:07 Blood Culture - Preliminary
Blood/Venous No Growth in 48 hours- Final report to follow
01/27/25 09:40 Blood Culture - Preliminary
Blood/Venous No Growth in 48 hours- Final report to follow
01/26/25 18:14 Blood Culture - Preliminary
Blood/Venous Escherichia coli
Gram Stain - Preliminary
01/26/25 14:48 Blood Culture - Preliminary
Blood/Venous Escherichia coli
Gram Stain - Preliminary
01/26/25 14:47 Urine Culture - Final
Urine Escherichia coli
[2025-01-29 11:08] VITALS: BP 116/63
--- NOTE | 2025-01-29 11:28 | W.PN.HOSP.TC ---
Today's Communication/Plan
-
Monitor vital signs and see plan
Discussed with urology, patient will follow-up with urology outpatient
Discharge today on ciprofloxacin
Leukocytosis resolved
Time of discharge 38 minutes
Assessment / Plan
Assessment / Plan
General: No acute distress
HEENT: Moist mucous membranes and PERRLA
Respiratory: Clear; No Wheezes, Rales or Rhonchi
Cardiac: S1/S2 and Tachycardia; No Murmur
GI: Soft, Non Distended, Normal Bowel Sounds
Musculoskeletal: No Clubbing, No Cyanosis and No Edema
Neuro: AO x 3
Left Ureterolithiasis with Hydronephrosis
UTI secondary to the above
Sepsis secondary to UTI with bacteremia
HUGH on CKD III
- Patient was taken urgently to the OR for cysto / stent. s/p cysto/stent
- Continue IV abx pending culture data. Blood culture 2 out of 2 bottles positive for E. coli. ID following. bcx 01/27 NGTD. now on cipro, ciprofloxacin 500 mg PO BID x 14 day course 01/27-02/09
- Tamsulosin daily.
Urology following; patient to follow urology outpatient. Discussed with Dr. Gamez
Renal insufficiency
Improving
Likely secondary to obstruction
ASCVD
- Stable. No chest pain, palpitations, etc.
- Monitor on telemetry post-op.
- Continue ASA, beta-amelia, statin.
- Follow for any new symptoms / complaints.
hx of HTN
monitor
Hypothyroidism
- Continue current T4 replacement.
DVT Prophylaxis: SCDs, heparin
Code Status: Full
Anticipated Discharge: Today
Subjective/Interval History
-
Date of Service: January 29, 2025
denies pain
Objective Data
-
Labs:
Laboratory Results
01/29/25
05:15
WBC 10.6
Hgb 12.0 L
Hct 35.0 L
Plt Count 189
Sodium 135
Potassium 4.0
Chloride 104
Carbon Dioxide 25
BUN 22 H
Creatinine 1.3
Glucose 83
Calcium 8.5
Vital Signs:
Vital Signs
Temp Pulse Resp BP Pulse Ox
98.8 F 74 20 116/63 93
01/29/25 11:08 01/29/25 11:08 01/29/25 11:08 01/29/25 11:08 01/29/25 11:08
I&O
01/28/25 01/29/25 01/30/25
06:59 06:59 06:59
Intake Total 4870 / 4870 1320 / 1320
Output Total 1150 / 1150 1025 / 1025
Balance 3720 / 3720 295 / 295
--- NOTE | 2025-01-29 12:02 | W.DCSUMMARY ---
Discharge Summary
Discharge Data
Date of Admission: 01/26/25
Date of Discharge: 01/29/25
-
Pending Results: No
Hospital Course
69-year-old male with past medical history of hypertension, hypothyroidism came to the hospital with sepsis secondary to urinary tract infection with E. coli bacteremia due to left ureteral lithiasis with hydronephrosis. Patient was seen by urology
and was taken to the OR for cystoscopy and stent placement. Patient blood cultures were also positive with E. coli which was also in his urine. Patient was seen by infectious disease throughout hospitalization and was initially on IV antibiotics
which were later transitioned to oral ciprofloxacin prior to discharge. He also had renal insufficiency which continued to improve over time. Once his symptoms continue to improve, he was then discharged home with instructions to follow-up with
all his other physicians and urology outpatient.
Discharge Plan
-
Patient Disposition: Home (Routine Discharge)
Discharge Diagnosis/Procedures: Pyelonephritis secondary to left ureteral Stone with bacteremia
Suspected prostatitis
CKD
Procedure Performed: Cysto, dislodgement of left ureteral stone, stenting
Condition: Fair
Diet: As tolerated
Activity: As tolerated
Driving Restrictions: As prior to admission
Bathing Restrictions: None
Referrals:
Allen Boone DO [Family Provider, [facility]] - in less than 1 week
Russell Gamez MD [Active, Urology]
Referral Note: call to schedule 'pre-op' appointment on during the next 2 weeks
Prescriptions:
New
ciprofloxacin HCl 500 mg Tablet
500 mg PO BID 12 Days Qty: 24 0RF
tamsulosin 0.4 mg Capsule
0.4 mg PO DAILY Qty: 30 0RF
Continued
atorvastatin 80 mg Tablet
80 mg PO HS
levothyroxine 50 mcg Tablet
50 mcg PO DAILY
aspirin 81 mg Tablet,Chewable
81 mg PO DAILY
metoprolol succinate 25 mg Tablet Extended Release 24 Hr
25 mg PO DAILY
ezetimibe 10 mg Tablet
10 mg PO DAILY
Discharge Orders:
Discharge Patient (As Directed); Ordered 01/29/25
Ordered By: Aakash Cortes
Discharge Date and Time
Discharge Date/Time: 01/29/25 14:50
Print Language: OCCITAN
--- NOTE | 2025-01-29 14:27 | CM ---
MD entered order for discharge.
Spoke with patient he said he was ready for discharge.
He said his Lisa will drive him home .
Offered VN he declined need
PLAN Home no needs
== END 2025-01-29 14:50 | disposition home or self-care (01) | DRG 854 ==
LOC: 3 WEST ACU 21:32
PROVIDERS: Physician Assistant Medical; ADMITTING PHYSICIAN Hospitalist; ATTENDING PHYSICIAN Internal Medicine; CONSULT PHYSICIAN Specialist; CONSULT PHYSICIAN Student in an Organized Health Care Education/Training Program; EMERGENCY PHYSICIAN Emergency Medicine; FAMILY PHYSICIAN Family Medicine; REFERRING PHYSICIAN Internal Medicine Cardiovascular Disease
PROC: 0TC78ZZ Extirpation of Matter from Left Ureter, Via Natural or Artificial Opening Endoscopic (ICD-10-PCS; 2025-01-27)
PROC: 0T778DZ Dilation of Left Ureter with Intraluminal Device, Via Natural or Artificial Opening Endoscopic (ICD-10-PCS; 2025-01-27)
DX: A41.9 Sepsis, unspecified organism (principal); N13.6 Pyonephrosis; N20.1 Calculus of ureter; N17.9 Acute kidney failure, unspecified; E03.9 Hypothyroidism, unspecified; Z87.442 Personal history of urinary calculi; I25.10 Atherosclerotic heart disease of native coronary artery without angina pectoris; N18.30 Chronic kidney disease, stage 3 unspecified; I12.9 Hypertensive chronic kidney disease with stage 1 through stage 4 chronic kidney disease, or unspecified chronic kidney disease; Z95.1 Presence of aortocoronary bypass graft; Z79.890 Hormone replacement therapy; Z79.899 Other long term (current) drug therapy; Z79.82 Long term (current) use of aspirin; E78.00 Pure hypercholesterolemia, unspecified
CPT/HCPCS: 74018; 74176; 76000; 80048; 80053; 81003; 81015; 83605; 85025; 85027; 87040; 87077; 87086; 87154; 87186; 87205; 93005; 96361; 96374; 99284